=== PATIENT | male | born 1955 | race Caucasian/White ===

== ENCOUNTER 2018-09-14 15:11 | Inpatient (IN) | payer BC ==
[~2018-09-14] VITALS: Ht 182.9 cm; Wt 94.3 kg
[2018-09-14] MEDS ORDERED: IV NORMAL SALINE 1000ML BAG 1,000 ML IV SCH (15:27)
[2018-09-14] MEDS ORDERED: ASPIRIN CHEWABLE 81 MG TABLET. PO ONE (15:30)
--- NOTE | 2018-09-14 15:33 | PHYS DOC ---
Past Medical History Smoking: Quit Greater Than 1 Year Adult General Chief Complaint Chief Complaint: CHEST PAIN HPI HPI Patient is a 63 year old male who presents with a near syncopal episode that happened around 2:00 PM today. The patient states he was pushing carts at [employer] outside and began feeling lightheaded, and started having pain that shot up his left arm and chest. 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 The patient is a poor historian. Denies any pain at this time. Symptoms subsided after the event once he went inside and rested. Has not know his medical history, or medicines that he takes. I did figure out that he is a diabetic, has high cholesterol, and hypertension. Ate lunch and has been drinking fluids as normally does at work. Tried a glucose tablet prior to arrival which did not help. Review of Systems Review of Systems Constitutional: Denies fever or chills [] Eyes: Denies change in visual acuity, redness, or eye pain [] HENT: Denies nasal congestion or sore throat [] Respiratory: Denies cough or shortness of breath [] Cardiovascular: Reports Chest pain and left arm pain at the time of the event. GI: Denies abdominal pain, nausea, vomiting, bloody stools or diarrhea [] : Denies dysuria or hematuria [] Musculoskeletal: Denies back pain or joint pain [] Integument: Denies rash or skin lesions [] Neurologic: Reports dizziness at the time of the event. Denies headache, focal weakness or sensory changes [] Endocrine: Denies polyuria or polydipsia [] Complete systems were reviewed and found to be within normal limits, except as documented in this note. Family History Family History Has a family history of cardiac issues. His father at age 62 from a heart attack. Current Medications Current Medications Current Medications Medications (Trade) Dose Ordered Sig/Amee Start Time Stop Time Status Last Admin Dose Admin Aspirin (Children'S Aspirin) 324 mg 1X ONCE 09/14/18 15:30 09/14/18 15:52 DC 09/14/18 15:56 324 MG Morphine Sulfate (Morphine Sulfate) 2 mg PRN Q2HR PRN 09/14/18 17:15 09/15/18 17:14 Nitroglycerin (Nitrostat) 0.4 mg PRN Q5MIN PRN 09/14/18 17:15 09/15/18 17:14 Ondansetron HCl (Zofran) 4 mg PRN Q8HRS PRN 09/14/18 17:15 09/15/18 17:14 Sodium Chloride 1,000 ml @ 1,000 mls/hr Q1H 09/14/18 15:27 09/14/18 16:26 DC 09/14/18 15:48 1,000 MLS/HR Allergies Allergies Allergies Coded Allergies Type Severity Reaction Last Updated Verified No Known Drug Allergies 09/14/18 No Physical Exam Physical Exam Constitutional: Well developed, well nourished, no acute distress, non-toxic appearance. [] HENT: Normocephalic, atraumatic, bilateral external ears normal, oropharynx moist, no oral exudates, nose normal. [] Eyes: PERRLA, EOMI, conjunctiva normal, no discharge. [] Neck: Normal range of motion, no tenderness, supple, no stridor. [] Cardiovascular:Heart rate regular rhythm, no murmur [] Lungs & Thorax: Bilateral breath sounds clear to auscultation [] Abdomen: Bowel sounds normal, soft, no tenderness, no masses, no pulsatile masses. [] Skin: Warm, dry, no erythema, no rash. [] Back: No tenderness, no CVA tenderness. [] Extremities: No tenderness, no cyanosis, no clubbing, ROM intact, no edema. [] Neurologic: Alert and oriented X 3, normal motor function, normal sensory function, no focal deficits noted. [] Psychologic: Affect normal, judgement normal, mood normal. [] Current Patient Data Vital Signs Vital Signs Date Time Temp Pulse Resp B/P (MAP) Pulse Ox O2 Delivery O2 Flow Rate FiO2 09/14/18 15:57 83 20 160/79 (106) 97 Room Air 09/14/18 15:19 98.4 98.4 Lab Values Laboratory Tests Test 09/14/18 15:34 White Blood Count 6.4 x10^3/uL (4.0-11.0) Red Blood Count 4.42 x10^6/uL (4.30-5.70) Hemoglobin 13.1 g/dL (13.0-17.5) Hematocrit 39.5 % (39.0-53.0) Mean Corpuscular Volume 89 fL (79-100) Mean Corpuscular Hemoglobin 30 pg (25-35) Mean Corpuscular Hemoglobin Concent 33 g/dL (31-37) Red Cell Distribution Width 14.4 % (11.5-14.5) Platelet Count 254 x10^3/uL (140-400) Neutrophils (%) (Auto) 56 % (31-73) Lymphocytes (%) (Auto) 27 % (24-48) Monocytes (%) (Auto) 9 % (0-9) Eosinophils (%) (Auto) 7 % (0-3) H Basophils (%) (Auto) 1 % (0-3) Neutrophils # (Auto) 3.6 x10^3uL (1.8-7.7) Lymphocytes # (Auto) 1.7 x10^3/uL (1.0-4.8) Monocytes # (Auto) 0.6 x10^3/uL (0.0-1.1) Eosinophils # (Auto) 0.4 x10^3/uL (0.0-0.7) Basophils # (Auto) 0.0 x10^3/uL (0.0-0.2) Sodium Level 140 mmol/L (136-145) Potassium Level 4.8 mmol/L (3.5-5.1) Chloride Level 102 mmol/L (98-107) Carbon Dioxide Level 26 mmol/L (21-32) Anion Gap 12 (6-14) Blood Urea Nitrogen 23 mg/dL (8-26) Creatinine 1.0 mg/dL (0.7-1.3) Estimated GFR (Cockcroft-Gault) 75.7 BUN/Creatinine Ratio 23 (6-20) H Glucose Level 149 mg/dL (70-99) H Calcium Level 9.8 mg/dL (8.5-10.1) Total Bilirubin 0.4 mg/dL (0.2-1.0) Aspartate Amino Transferase (AST) 15 U/L (15-37) Alanine Aminotransferase (ALT) 25 U/L (16-63) Alkaline Phosphatase 54 U/L (46-116) Troponin I Quantitative < 0.017 ng/mL (0.000-0.055) KH-Nzz-Q-Type Natriuretic Peptide 25 pg/mL (0-124) Total Protein 7.6 g/dL (6.4-8.2) Albumin 4.0 g/dL (3.4-5.0) Albumin/Globulin Ratio 1.1 (1.0-1.7) Laboratory Tests 09/14/18 15:34 Laboratory Tests 09/14/18 15:34 EKG EKG EKG interpreted by Dr. Reuben Rosa with rate of 80. Occasional PAC. No STEMI.[] Radiology/Procedures Radiology/Procedures []PATIENT: DEMARCUS PRAKASHCOUNT: [id number]#: [id number] : 1955 LOCATION: ER AGE: 63 SEX: M EXAM STATUS: PRE ER ORD. PHYSICIAN: DAVEY PHILLIPS APRN REASON: Chest pain today PROCEDURE: CHEST PA & LATERAL EXAM: CHEST 2 VIEWS. HISTORY: Chest pain. COMPARISON: None. FINDINGS: Frontal and lateral views of the chest are obtained. There are no confluent infiltrates. There is no pneumothorax or pleural effusion. The heart is not enlarged. IMPRESSION: 1. No confluent infiltrates. Electronically signed by: Edvin Young MD (09/14/2018 3:52 PM) [facility] Course & Med Decision Making Course & Med Decision Making Pertinent Labs and Imaging studies reviewed. (See chart for details) Will get labs, chest x-ray, ekg, and give fluids. Patient is agreeable. Imaging is negative. Labs are unremarkable. Discussed admission with patient (1640). Patient agreed to be admitted for further workup. Will page hospitalist. Discussed with hospitalist (Juan) and will admit to hospital. Dragon Disclaimer Dragon Disclaimer This electronic medical record was generated, in whole or in part, using a voice recognition dictation system. Departure Departure Impression: Primary Impression: Chest pain Disposition: ADMITTED INPATIENT Admitting Physician: HIMS Condition: STABLE The HEART Score for CP Pts HEART Score for Chest Pain: HEART Score for Chest Pain Response (Comments) Value History Moderately Suspicious 1 ECG Nonspecific Repolarizatio 1 Age >45 - < 65 1 Risk Factors >3 Risk Factors or Hx CAD 2 Troponin < Normal Limit 0 Total 5 Risk Factors: Risk Factors: DM, Current or recent (<one month) smoker, HTN, HLP, family history of CAD, obesity. Risk Scores: Score 0 - 3: 2.5% MACE over next 6 weeks - Discharge Home Score 4 - 6: 20.3% MACE over next 6 weeks - Admit for Clinical Observation Score 7 - 10: 72.7% MACE over next 6 weeks - Early Invasive Strategies Problem Qualifiers Primary Impression: Chest pain Chest pain type: unspecified Qualified Codes: R07.9 - Chest pain, unspecified DAVEY PHILLIPS APRN Sep 14, 2018 15:33
[2018-09-14] MEDS ORDERED: SIMV40TA3 PO (15:52)
[2018-09-14] MEDS ORDERED: GLIM4TAB2 PO (15:52)
[2018-09-14] MEDS ORDERED: LOSA25TA PO (15:52)
[2018-09-14] MEDS ORDERED: METF500T16 PO (15:52)
[2018-09-14 15:53] LABS: BASO % 1 % (0-3); EOS # 0.4 x10^3/uL (0.0-0.7); EOS % 7 % (0-3); HEMATOCRIT 39.5 % (39.0-53.0); HEMOGLOBIN 13.1 g/dL (13.0-17.5); LYMPH # 1.7 x10^3/uL (1.0-4.8); LYMPH % 27 % (24-48); MEAN CORPUSCULAR HEMOGLOBIN 30 pg (25-35); MEAN CORPUSCULAR HGB CONC 33 g/dL (31-37); MEAN CORPUSCULAR VOLUME 89 fL (79-100); MONO # 0.6 x10^3/uL (0.0-1.1); MONO % 9 % (0-9); NEUT # 3.6 x10^3uL (1.8-7.7); NEUT % 56 % (31-73); PLATELET COUNT 254 x10^3/uL (140-400); RED BLOOD COUNT 4.42 x10^6/uL (4.30-5.70); RED CELL DISTRIBUTION WIDTH 14.4 % (11.5-14.5); WHITE BLOOD COUNT 6.4 x10^3/uL (4.0-11.0)
--- NOTE | 2018-09-14 15:55 | RAD ---
EXAM: CHEST 2 VIEWS. HISTORY: Chest pain. COMPARISON: None. FINDINGS: Frontal and lateral views of the chest are obtained. There are no confluent infiltrates. There is no pneumothorax or pleural effusion. The heart is not enlarged. IMPRESSION: 1. No confluent infiltrates. Electronically signed by: Edvin Young MD (09/14/2018 3:52 PM) [facility]
[2018-09-14 16:05] LABS: CALCIUM 9.8 mg/dL (8.5-10.1); GFR 75.7; POTASSIUM 4.8 mmol/L (3.5-5.1)
[2018-09-14 16:10] LABS: ALBUMIN/GLOBULIN RATIO 1.1 (1.0-1.7); TOTAL BILIRUBIN 0.4 mg/dL (0.2-1.0); TOTAL PROTEIN 7.6 g/dL (6.4-8.2)
--- NOTE | 2018-09-14 16:12 | EKG ---
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
[2018-09-14] MEDS ORDERED: ONDANSETRON PF 4 MG/2 ML VIAL. IV PRN ×2 (17:15→17:45)
[2018-09-14] MEDS ORDERED: MORPHINE SULFATE 2 MG/ML VIAL. IV PRN (17:15)
[2018-09-14] MEDS ORDERED: NITROGLYCERIN SUBLINGUAL 0.4 MG BOTTLE OF 25. SL PRN (17:15)
[2018-09-14] MEDS ORDERED: DEXTROSE 50% 25 GM / 50ML DISP.SYRIN. IV PRN (17:45)
[2018-09-14] MEDS ORDERED: ACETAMINOPHEN 500 MG TABLET PO PRN (17:45)
[2018-09-14] MEDS ORDERED: diphenhydrAMINE HCL 25 MG CAPSULE PO PRN (17:45)
[2018-09-14] MEDS ORDERED: ACETAMINOPHEN/CODEINE 300/30MG TABLET. PO PRN (17:45)
--- NOTE | 2018-09-14 17:49 | PDOC1 ---
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 Blood pressure on the high side and also tachycardi c. Takes metformin, simvastatin, losartan and other meds. Quit smoking 18 years ago when he smoked for 25 years. Not chewing any more tobacco. ALso quit etoh. So far labs are unremarkable - admitted for to trend troponin with cards consult. He denies any diaphoresis or SOA. There was Some left arm involvement. Currently chest pain-free. Past Medical History Cardiovascular: HTN, Hyperlipidemia Pulmonary: Bronchitis Past Surgical History Past Surgical History: No pertinent history Family History Family History: Heart Disease, Hypertension Social History Smoke: Quit ALCOHOL: none Drugs: None Current Problem List Problem List Problems Medical Problems: (1) Chest pain Status: Acute Current Medications Current Medications Current Medications Aspirin (Children'S Aspirin) 324 mg 1X ONCE PO Last administered on 09/14/18at 15:56; Start 09/14/18 at 15:30; Stop 09/14/18 at 15:52; Status DC Sodium Chloride 1,000 ml @ 1,000 mls/hr Q1H IV Last administered on 09/14/18at 15:48; Start 09/14/18 at 15:27; Stop 09/14/18 at 16:26; Status DC Ondansetron HCl (Zofran) 4 mg PRN Q8HRS PRN IV NAUSEA/VOMITING; Start 09/14/18 at 17:15; Stop 09/15/18 at 17:14 Morphine Sulfate (Morphine Sulfate) 2 mg PRN Q2HR PRN IV PAIN; Start 09/14/18 at 17:15; Stop 09/15/18 at 17:14 Nitroglycerin (Nitrostat) 0.4 mg PRN Q5MIN PRN SL CHEST PAIN; Start 09/14/18 at 17:15; Stop 09/15/18 at 17:14 Active Scripts Active Reported Simvastatin 40 Mg Tablet 40 Mg PO DAILY Glimepiride 4 Mg Tablet 1 Tab PO BID Cozaar (Losartan Potassium) 25 Mg Tablet 25 Mg PO DAILY Metformin Hcl 500 Mg Tablet 1,000 Mg PO BIDWMEALS Allergies Allergies: Coded Allergies: No Known Drug Allergies (Unverified , 09/14/18) ROS Review of System As per history of present illness, the rest of ROS 14 point negative Physical Exam General: Alert, Oriented X3, Cooperative, No acute distress HEENT: Atraumatic, PERRLA, EOMI Lungs: Clear to auscultation, Normal air movement Heart: S1S2, RRR, no thrills, no rubs, no gallops, no murmurs Cardiovascular: S1, S2 Abdomen: Normal bowel sounds, Soft, No tenderness, No hepatosplenomegaly, No ma sses Male Genitals Exam: normal genitalia, normal prostate Rectal Exam: not examined PELVIC: Nml ext genitalia Extremities: No clubbing, No cyanosis, No edema, Normal pulses, No tenderness/swelling Skin: No rashes, No breakdown, No significant lesion Neuro: Normal gait, Normal speech, Strength at 5/5 X4 ext, Normal tone, Sensation intact, Cranial nerves 3-12 NL, Reflexes 2+ Psych/Mental Status: Mental status NL, Mood NL Vitals Vitals Vital Signs Date Time Temp Pulse Resp B/P (MAP) Pulse Ox O2 Delivery O2 Flow Rate FiO2 09/14/18 17:35 80 16 160/88 (112) 97 Room Air 09/14/18 15:19 98.4 98.4 Labs Labs Laboratory Tests Test 09/14/18 15:34 White Blood Count 6.4 x10^3/uL (4.0-11.0) Red Blood Count 4.42 x10^6/uL (4.30-5.70) Hemoglobin 13.1 g/dL (13.0-17.5) Hematocrit 39.5 % (39.0-53.0) Mean Corpuscular Volume 89 fL (79-100) Mean Corpuscular Hemoglobin 30 pg (25-35) Mean Corpuscular Hemoglobin Concent 33 g/dL (31-37) Red Cell Distribution Width 14.4 % (11.5-14.5) Platelet Count 254 x10^3/uL (140-400) Neutrophils (%) (Auto) 56 % (31-73) Lymphocytes (%) (Auto) 27 % (24-48) Monocytes (%) (Auto) 9 % (0-9) Eosinophils (%) (Auto) 7 % (0-3) Basophils (%) (Auto) 1 % (0-3) Neutrophils # (Auto) 3.6 x10^3uL (1.8-7.7) Lymphocytes # (Auto) 1.7 x10^3/uL (1.0-4.8) Monocytes # (Auto) 0.6 x10^3/uL (0.0-1.1) Eosinophils # (Auto) 0.4 x10^3/uL (0.0-0.7) Basophils # (Auto) 0.0 x10^3/uL (0.0-0.2) Sodium Level 140 mmol/L (136-145) Potassium Level 4.8 mmol/L (3.5-5.1) Chloride Level 102 mmol/L (98-107) Carbon Dioxide Level 26 mmol/L (21-32) Anion Gap 12 (6-14) Blood Urea Nitrogen 23 mg/dL (8-26) Creatinine 1.0 mg/dL (0.7-1.3) Estimated GFR (Cockcroft-Gault) 75.7 BUN/Creatinine Ratio 23 (6-20) Glucose Level 149 mg/dL (70-99) Calcium Level 9.8 mg/dL (8.5-10.1) Total Bilirubin 0.4 mg/dL (0.2-1.0) Aspartate Amino Transf (AST/SGOT) 15 U/L (15-37) Alanine Aminotransferase (ALT/SGPT) 25 U/L (16-63) Alkaline Phosphatase 54 U/L (46-116) Troponin I Quantitative < 0.017 ng/mL (0.000-0.055) YY-Nvc-H-Type Natriuretic Peptide 25 pg/mL (0-124) Total Protein 7.6 g/dL (6.4-8.2) Albumin 4.0 g/dL (3.4-5.0) Albumin/Globulin Ratio 1.1 (1.0-1.7) Laboratory Tests Test 09/14/18 15:34 White Blood Count 6.4 x10^3/uL (4.0-11.0) Red Blood Count 4.42 x10^6/uL (4.30-5.70) Hemoglobin 13.1 g/dL (13.0-17.5) Hematocrit 39.5 % (39.0-53.0) Mean Corpuscular Volume 89 fL (79-100) Mean Corpuscular Hemoglobin 30 pg (25-35) Mean Corpuscular Hemoglobin Concent 33 g/dL (31-37) Red Cell Distribution Width 14.4 % (11.5-14.5) Platelet Count 254 x10^3/uL (140-400) Neutrophils (%) (Auto) 56 % (31-73) Lymphocytes (%) (Auto) 27 % (24-48) Monocytes (%) (Auto) 9 % (0-9) Eosinophils (%) (Auto) 7 % (0-3) Basophils (%) (Auto) 1 % (0-3) Neutrophils # (Auto) 3.6 x10^3uL (1.8-7.7) Lymphocytes # (Auto) 1.7 x10^3/uL (1.0-4.8) Monocytes # (Auto) 0.6 x10^3/uL (0.0-1.1) Eosinophils # (Auto) 0.4 x10^3/uL (0.0-0.7) Basophils # (Auto) 0.0 x10^3/uL (0.0-0.2) Sodium Level 140 mmol/L (136-145) Potassium Level 4.8 mmol/L (3.5-5.1) Chloride Level 102 mmol/L (98-107) Carbon Dioxide Level 26 mmol/L (21-32) Anion Gap 12 (6-14) Blood Urea Nitrogen 23 mg/dL (8-26) Creatinine 1.0 mg/dL (0.7-1.3) Estimated GFR (Cockcroft-Gault) 75.7 BUN/Creatinine Ratio 23 (6-20) Glucose Level 149 mg/dL (70-99) Calcium Level 9.8 mg/dL (8.5-10.1) Total Bilirubin 0.4 mg/dL (0.2-1.0) Aspartate Amino Transf (AST/SGOT) 15 U/L (15-37) Alanine Aminotransferase (ALT/SGPT) 25 U/L (16-63) Alkaline Phosphatase 54 U/L (46-116) Troponin I Quantitative < 0.017 ng/mL (0.000-0.055) QB-Wnj-X-Type Natriuretic Peptide 25 pg/mL (0-124) Total Protein 7.6 g/dL (6.4-8.2) Albumin 4.0 g/dL (3.4-5.0) Albumin/Globulin Ratio 1.1 (1.0-1.7) VTE Prophylaxis Ordered VTE Prophylaxis Devices: Yes VTE Pharmacological Prophylaxi: Yes Assessment/Plan Assessment/Plan Chest pain on exertion, rule out ACSt Hypertension, uncontrolled Diabetes type 2 on metformin Dyslipidemia on statin Plan: CVC bed, cardsconsult Trend troponin Okay to resume all home meds Sliding-scale insulin May check hemoglobin A1c Labetalol when necessary for high BP Observation status FULL CODE Seen at BAM PERKINS MD Sep 14, 2018 17:49
[2018-09-14 18:13] LABS: BILIRUBIN,URINE NEGATIVE (NEG); CLARITY,URINE CLEAR; COLOR,URINE YELLOW; NITRITE,URINE NEGATIVE (NEG); PROTEIN,URINE NEGATIVE (NEG-TRACE); UROBILINOGEN,URINE 0.2 mg/dL (0.2 mg/dL)
--- NOTE | 2018-09-14 18:15 | NUR ---
The patient, DEMARCUS PRAKASH, 63 y/o, M admitted by BAM JACQUES MD, was given written information regarding hospital policies, unit procedures and contact persons. Valuables checked and left in room with patient. Pt arrived to unit via wheelchair from ER. Pt alert and oriented. No complaints of chest pain at this time. Call light within reach. Will continue to monitor.
[2018-09-14 18:30] VITALS: BP 164/89
[2018-09-14 18:36] LABS: BACTERIA,URINE 0 /HPF (0-FEW); RBC,URINE 0 /HPF (0-2); WBC,URINE 0 /HPF (0-4)
[2018-09-14] MEDS: SIMVASTATIN 40 MG TABLET. PO SCH (21:26)
[2018-09-14 23:26] VITALS: BP 148/73
[2018-09-15 02:52] VITALS: BP 140/80
[2018-09-15 07:00] VITALS: BP 148/80
[2018-09-15] MEDS: INSULIN LISPRO 300 UNITS/3 ML INSULN.PEN. SQ SCH ×3 (08:00→17:00)
--- NOTE | 2018-09-15 08:11 | PDOC2 ---
CONSULT Date of Consult Date of Consult DATE: 09/15/18 TIME: 08:10 Reason for Consult Reason for Consult: Chest pain Referring Physician Referring Physician: Dr. 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 He denied any similar symptoms in the past. He has strong family history of premature coronary artery disease. He quit smoking 18 years ago. He denied any orthopnea/PND, palpitations or syncope. Past Medical History Cardiovascular: HTN, Hyperlipidemia Pulmonary: Bronchitis Past Surgical History Past Surgical History: No pertinent history Family History Family History: Heart Disease, Hypertension Social History Quit ALCOHOL: none Drugs: None Current Problem List Problem List Problems Medical Problems: (1) Chest pain Status: Acute Current Medications Current Medications Current Medications Aspirin (Children'S Aspirin) 324 mg 1X ONCE PO Last administered on 09/14/18at 15:56; Start 09/14/18 at 15:30; Stop 09/14/18 at 15:52; Status DC Sodium Chloride 1,000 ml @ 1,000 mls/hr Q1H IV Last administered on 09/14/18at 15:48; Start 09/14/18 at 15:27; Stop 09/14/18 at 16:26; Status DC Ondansetron HCl (Zofran) 4 mg PRN Q8HRS PRN IV NAUSEA/VOMITING; Start 09/14/18 at 17:15; Stop 09/14/18 at 17:45; Status DC Morphine Sulfate (Morphine Sulfate) 2 mg PRN Q2HR PRN IV PAIN; Start 09/14/18 at 17:15; Stop 09/15/18 at 17:14 Nitroglycerin (Nitrostat) 0.4 mg PRN Q5MIN PRN SL CHEST PAIN; Start 09/14/18 at 17:15; Stop 09/15/18 at 17:14 Ondansetron HCl (Zofran) 4 mg PRN Q6HRS PRN IV NAUSEA/VOMITING; Start 09/14/18 at 17:45 Diphenhydramine HCl (Benadryl) 25 mg PRN QHS PRN PO INSOMNIA; Start 09/14/18 at 17:45 Acetaminophen (Tylenol) 500 mg PRN Q6HRS PRN PO MILD PAIN / TEMP; Start 09/14/18 at 17:45 Acetaminophen/ Codeine Phosphate (Tylenol #3) 1 tab PRN Q6HRS PRN PO MODERATE PAIN; Start 09/14/18 at 17:45 Losartan Potassium (Cozaar) 25 mg DAILY PO ; Start 09/15/18 at 09:00 Glimepiride (Amaryl) 4 mg BIDWMEALS PO ; Start 09/15/18 at 08:00 Metformin HCl (Glucophage) 1,000 mg BIDWMEALS PO ; Start 09/15/18 at 08:00 Simvastatin (Zocor) 40 mg QHS PO Last administered on 09/14/18at 21:26; Start 09/14/18 at 21:00 Insulin Human Lispro (HumaLOG) 0-9 UNITS TIDWMEALS SQ ; Start 09/15/18 at 08:00 Dextrose (Dextrose 50%-Water Syringe) 12.5 gm PRN Q15MIN PRN IV SEE COMMENTS; Start 09/14/18 at 17:45 Active Scripts Active Reported Simvastatin 40 Mg Tablet 40 Mg PO DAILY Glimepiride 4 Mg Tablet 1 Tab PO BID Cozaar (Losartan Potassium) 25 Mg Tablet 25 Mg PO DAILY Metformin Hcl 500 Mg Tablet 1,000 Mg PO BIDWMEALS Allergies Allergies: Coded Allergies: No Known Drug Allergies (Unverified , 09/14/18) ROS PSYCHOLOGICAL ROS: No: Hallucinations Eyes: No Loss of vision HEENT: No: Epistaxis Respiratory: No: Hemoptysis Cardiovascular: yes Chest Pain Gastrointestinal: No Vomiting, No Diarrhea Genitourinary: No Hematuria Neurological: No Seizures Skin: No Rash Physical Exam General: Alert, Oriented X3 HEENT: Atraumatic, PERRLA Lungs: Clear to auscultation Heart: Regular rate Abdomen: Soft, No tenderness Extremities: No edema Psych/Mental Status: Mood NL Vitals VITALS Vital Signs Date Time Temp Pulse Resp B/P (MAP) Pulse Ox O2 Delivery O2 Flow Rate FiO2 09/15/18 07:00 98.2 77 18 148/80 (102) 94 Room Air 98.2 Labs Labs Laboratory Tests Test 09/14/18 15:34 09/14/18 17:55 09/14/18 18:22 09/14/18 20:15 White Blood Count 6.4 x10^3/uL (4.0-11.0) Red Blood Count 4.42 x10^6/uL (4.30-5.70) Hemoglobin 13.1 g/dL (13.0-17.5) Hematocrit 39.5 % (39.0-53.0) Mean Corpuscular Volume 89 fL (79-100) Mean Corpuscular Hemoglobin 30 pg (25-35) Mean Corpuscular Hemoglobin Concent 33 g/dL (31-37) Red Cell Distribution Width 14.4 % (11.5-14.5) Platelet Count 254 x10^3/uL (140-400) Neutrophils (%) (Auto) 56 % (31-73) Lymphocytes (%) (Auto) 27 % (24-48) Monocytes (%) (Auto) 9 % (0-9) Eosinophils (%) (Auto) 7 % (0-3) Basophils (%) (Auto) 1 % (0-3) Neutrophils # (Auto) 3.6 x10^3uL (1.8-7.7) Lymphocytes # (Auto) 1.7 x10^3/uL (1.0-4.8) Monocytes # (Auto) 0.6 x10^3/uL (0.0-1.1) Eosinophils # (Auto) 0.4 x10^3/uL (0.0-0.7) Basophils # (Auto) 0.0 x10^3/uL (0.0-0.2) Sodium Level 140 mmol/L (136-145) Potassium Level 4.8 mmol/L (3.5-5.1) Chloride Level 102 mmol/L (98-107) Carbon Dioxide Level 26 mmol/L (21-32) Anion Gap 12 (6-14) Blood Urea Nitrogen 23 mg/dL (8-26) Creatinine 1.0 mg/dL (0.7-1.3) Estimated GFR (Cockcroft-Gault) 75.7 BUN/Creatinine Ratio 23 (6-20) Glucose Level 149 mg/dL (70-99) Calcium Level 9.8 mg/dL (8.5-10.1) Total Bilirubin 0.4 mg/dL (0.2-1.0) Aspartate Amino Transf (AST/SGOT) 15 U/L (15-37) Alanine Aminotransferase (ALT/SGPT) 25 U/L (16-63) Alkaline Phosphatase 54 U/L (46-116) Troponin I Quantitative < 0.017 ng/mL (0.000-0.055) < 0.017 ng/mL (0.000-0.055) GE-Jjq-P-Type Natriuretic Peptide 25 pg/mL (0-124) Total Protein 7.6 g/dL (6.4-8.2) Albumin 4.0 g/dL (3.4-5.0) Albumin/Globulin Ratio 1.1 (1.0-1.7) Urine Collection Type Void Urine Color Yellow Urine Clarity Clear Urine pH 5.0 Urine Specific [place] <=1.005 Urine Protein Negative mg/dL (NEG-TRACE) Urine Glucose (UA) Negative mg/dL (NEG) Urine Ketones (Stick) Negative mg/dL (NEG) Urine Blood Negative (NEG) Urine Nitrite Negative (NEG) Urine Bilirubin Negative (NEG) Urine Urobilinogen Dipstick 0.2 mg/dL (0.2 mg/dL) Urine Leukocyte Esterase Negative (NEG) Urine RBC 0 /HPF (0-2) Urine WBC 0 /HPF (0-4) Urine Bacteria 0 /HPF (0-FEW) Glucose (Fingerstick) 99 mg/dL (70-99) Test 09/14/18 21:25 09/15/18 07:17 Glucose (Fingerstick) 160 mg/dL (70-99) 155 mg/dL (70-99) Laboratory Tests Test 09/14/18 15:34 09/14/18 17:55 09/14/18 18:22 09/14/18 20:15 White Blood Count 6.4 x10^3/uL (4.0-11.0) Red Blood Count 4.42 x10^6/uL (4.30-5.70) Hemoglobin 13.1 g/dL (13.0-17.5) Hematocrit 39.5 % (39.0-53.0) Mean Corpuscular Volume 89 fL (79-100) Mean Corpuscular Hemoglobin 30 pg (25-35) Mean Corpuscular Hemoglobin Concent 33 g/dL (31-37) Red Cell Distribution Width 14.4 % (11.5-14.5) Platelet Count 254 x10^3/uL (140-400) Neutrophils (%) (Auto) 56 % (31-73) Lymphocytes (%) (Auto) 27 % (24-48) Monocytes (%) (Auto) 9 % (0-9) Eosinophils (%) (Auto) 7 % (0-3) Basophils (%) (Auto) 1 % (0-3) Neutrophils # (Auto) 3.6 x10^3uL (1.8-7.7) Lymphocytes # (Auto) 1.7 x10^3/uL (1.0-4.8) Monocytes # (Auto) 0.6 x10^3/uL (0.0-1.1) Eosinophils # (Auto) 0.4 x10^3/uL (0.0-0.7) Basophils # (Auto) 0.0 x10^3/uL (0.0-0.2) Sodium Level 140 mmol/L (136-145) Potassium Level 4.8 mmol/L (3.5-5.1) Chloride Level 102 mmol/L (98-107) Carbon Dioxide Level 26 mmol/L (21-32) Anion Gap 12 (6-14) Blood Urea Nitrogen 23 mg/dL (8-26) Creatinine 1.0 mg/dL (0.7-1.3) Estimated GFR (Cockcroft-Gault) 75.7 BUN/Creatinine Ratio 23 (6-20) Glucose Level 149 mg/dL (70-99) Calcium Level 9.8 mg/dL (8.5-10.1) Total Bilirubin 0.4 mg/dL (0.2-1.0) Aspartate Amino Transf (AST/SGOT) 15 U/L (15-37) Alanine Aminotransferase (ALT/SGPT) 25 U/L (16-63) Alkaline Phosphatase 54 U/L (46-116) Troponin I Quantitative < 0.017 ng/mL (0.000-0.055) < 0.017 ng/mL (0.000-0.055) AU-Gwx-F-Type Natriuretic Peptide 25 pg/mL (0-124) Total Protein 7.6 g/dL (6.4-8.2) Albumin 4.0 g/dL (3.4-5.0) Albumin/Globulin Ratio 1.1 (1.0-1.7) Urine Collection Type Void Urine Color Yellow Urine Clarity Clear Urine pH 5.0 Urine Specific [place] <=1.005 Urine Protein Negative mg/dL (NEG-TRACE) Urine Glucose (UA) Negative mg/dL (NEG) Urine Ketones (Stick) Negative mg/dL (NEG) Urine Blood Negative (NEG) Urine Nitrite Negative (NEG) Urine Bilirubin Negative (NEG) Urine Urobilinogen Dipstick 0.2 mg/dL (0.2 mg/dL) Urine Leukocyte Esterase Negative (NEG) Urine RBC 0 /HPF (0-2) Urine WBC 0 /HPF (0-4) Urine Bacteria 0 /HPF (0-FEW) Glucose (Fingerstick) 99 mg/dL (70-99) Test 09/14/18 21:25 09/15/18 07:17 Glucose (Fingerstick) 160 mg/dL (70-99) 155 mg/dL (70-99) Assessment/Plan Assessment/Plan 1. Chest pain with typical features. Myocardial infarction has been ruled out. We will obtain Lexiscan nuclear stress test to rule out ischemic etiology secondary to his multiple cardiovascular risk factors. 2. Hypertension: Continue current medical regimen 3. Hyperlipidemia: Statins 4. Diabetes mellitus type 2: Treat per IM Thank you for your consultation BIENVENIDO URIAS MD Sep 15, 2018 08:11
[2018-09-15] MEDS ORDERED: REGADENOSON 0.4 MG/5 ML DISP.SYRIN. IV ONE ×2 (10:15→10:30)
[2018-09-15 11:00] VITALS: BP 156/83
[2018-09-15] MEDS: GLIMEPIRIDE 2 MG TABLET. PO SCH ×2 (12:49→17:02)
[2018-09-15] MEDS: metFORMIN 500 MG TABLET PO SCH ×2 (12:49→17:02)
[2018-09-15] MEDS: LOSARTAN POTASSIUM 25 MG TABLET. PO SCH (12:49)
--- NOTE | 2018-09-15 13:38 | PDOC ---
PROGRESS NOTES Chief Complaint Chief Complaint Chest pain on exertion, rule out ACSt Hypertension, uncontrolled Diabetes type 2 on metformin Dyslipidemia on statin History of Present Illness History of Present Illness MPI stress today if neg will try to DC home pain is better Sliding-scale insulin May check hemoglobin A1c, Dm2 decent control here FULL CODE Se Vitals Vitals Vital Signs Date Time Temp Pulse Resp B/P (MAP) Pulse Ox O2 Delivery O2 Flow Rate FiO2 09/15/18 12:49 80 156/83 09/15/18 11:00 98.8 18 95 Room Air 98.8 Physical Exam General: Alert, Oriented X3 Heart: Regular rate Abdomen: Soft, No tenderness Extremities: No edema Skin: No rashes, No breakdown, No significant lesion Labs LABS Laboratory Tests Test 09/14/18 15:34 09/14/18 17:55 09/14/18 18:22 09/14/18 20:15 White Blood Count 6.4 x10^3/uL (4.0-11.0) Red Blood Count 4.42 x10^6/uL (4.30-5.70) Hemoglobin 13.1 g/dL (13.0-17.5) Hematocrit 39.5 % (39.0-53.0) Mean Corpuscular Volume 89 fL (79-100) Mean Corpuscular Hemoglobin 30 pg (25-35) Mean Corpuscular Hemoglobin Concent 33 g/dL (31-37) Red Cell Distribution Width 14.4 % (11.5-14.5) Platelet Count 254 x10^3/uL (140-400) Neutrophils (%) (Auto) 56 % (31-73) Lymphocytes (%) (Auto) 27 % (24-48) Monocytes (%) (Auto) 9 % (0-9) Eosinophils (%) (Auto) 7 % (0-3) Basophils (%) (Auto) 1 % (0-3) Neutrophils # (Auto) 3.6 x10^3uL (1.8-7.7) Lymphocytes # (Auto) 1.7 x10^3/uL (1.0-4.8) Monocytes # (Auto) 0.6 x10^3/uL (0.0-1.1) Eosinophils # (Auto) 0.4 x10^3/uL (0.0-0.7) Basophils # (Auto) 0.0 x10^3/uL (0.0-0.2) Sodium Level 140 mmol/L (136-145) Potassium Level 4.8 mmol/L (3.5-5.1) Chloride Level 102 mmol/L (98-107) Carbon Dioxide Level 26 mmol/L (21-32) Anion Gap 12 (6-14) Blood Urea Nitrogen 23 mg/dL (8-26) Creatinine 1.0 mg/dL (0.7-1.3) Estimated GFR (Cockcroft-Gault) 75.7 BUN/Creatinine Ratio 23 (6-20) Glucose Level 149 mg/dL (70-99) Calcium Level 9.8 mg/dL (8.5-10.1) Total Bilirubin 0.4 mg/dL (0.2-1.0) Aspartate Amino Transf (AST/SGOT) 15 U/L (15-37) Alanine Aminotransferase (ALT/SGPT) 25 U/L (16-63) Alkaline Phosphatase 54 U/L (46-116) Troponin I Quantitative < 0.017 ng/mL (0.000-0.055) < 0.017 ng/mL (0.000-0.055) JQ-Nsk-L-Type Natriuretic Peptide 25 pg/mL (0-124) Total Protein 7.6 g/dL (6.4-8.2) Albumin 4.0 g/dL (3.4-5.0) Albumin/Globulin Ratio 1.1 (1.0-1.7) Urine Collection Type Void Urine Color Yellow Urine Clarity Clear Urine pH 5.0 Urine Specific [place] <=1.005 Urine Protein Negative mg/dL (NEG-TRACE) Urine Glucose (UA) Negative mg/dL (NEG) Urine Ketones (Stick) Negative mg/dL (NEG) Urine Blood Negative (NEG) Urine Nitrite Negative (NEG) Urine Bilirubin Negative (NEG) Urine Urobilinogen Dipstick 0.2 mg/dL (0.2 mg/dL) Urine Leukocyte Esterase Negative (NEG) Urine RBC 0 /HPF (0-2) Urine WBC 0 /HPF (0-4) Urine Bacteria 0 /HPF (0-FEW) Glucose (Fingerstick) 99 mg/dL (70-99) Test 09/14/18 21:25 09/15/18 07:17 09/15/18 10:49 Glucose (Fingerstick) 160 mg/dL (70-99) 155 mg/dL (70-99) 204 mg/dL (70-99) Assessment and Plan Assessmemt and Plan Problems Medical Problems: (1) Chest pain Status: Acute Comment Review of Relevant I have reviewed the following items donovan (where applicable) has been applied. Labs Laboratory Tests Test 09/14/18 15:34 09/14/18 17:55 09/14/18 18:22 09/14/18 20:15 White Blood Count 6.4 x10^3/uL (4.0-11.0) Red Blood Count 4.42 x10^6/uL (4.30-5.70) Hemoglobin 13.1 g/dL (13.0-17.5) Hematocrit 39.5 % (39.0-53.0) Mean Corpuscular Volume 89 fL (79-100) Mean Corpuscular Hemoglobin 30 pg (25-35) Mean Corpuscular Hemoglobin Concent 33 g/dL (31-37) Red Cell Distribution Width 14.4 % (11.5-14.5) Platelet Count 254 x10^3/uL (140-400) Neutrophils (%) (Auto) 56 % (31-73) Lymphocytes (%) (Auto) 27 % (24-48) Monocytes (%) (Auto) 9 % (0-9) Eosinophils (%) (Auto) 7 % (0-3) Basophils (%) (Auto) 1 % (0-3) Neutrophils # (Auto) 3.6 x10^3uL (1.8-7.7) Lymphocytes # (Auto) 1.7 x10^3/uL (1.0-4.8) Monocytes # (Auto) 0.6 x10^3/uL (0.0-1.1) Eosinophils # (Auto) 0.4 x10^3/uL (0.0-0.7) Basophils # (Auto) 0.0 x10^3/uL (0.0-0.2) Sodium Level 140 mmol/L (136-145) Potassium Level 4.8 mmol/L (3.5-5.1) Chloride Level 102 mmol/L (98-107) Carbon Dioxide Level 26 mmol/L (21-32) Anion Gap 12 (6-14) Blood Urea Nitrogen 23 mg/dL (8-26) Creatinine 1.0 mg/dL (0.7-1.3) Estimated GFR (Cockcroft-Gault) 75.7 BUN/Creatinine Ratio 23 (6-20) Glucose Level 149 mg/dL (70-99) Calcium Level 9.8 mg/dL (8.5-10.1) Total Bilirubin 0.4 mg/dL (0.2-1.0) Aspartate Amino Transf (AST/SGOT) 15 U/L (15-37) Alanine Aminotransferase (ALT/SGPT) 25 U/L (16-63) Alkaline Phosphatase 54 U/L (46-116) Troponin I Quantitative < 0.017 ng/mL (0.000-0.055) < 0.017 ng/mL (0.000-0.055) JR-Jmo-H-Type Natriuretic Peptide 25 pg/mL (0-124) Total Protein 7.6 g/dL (6.4-8.2) Albumin 4.0 g/dL (3.4-5.0) Albumin/Globulin Ratio 1.1 (1.0-1.7) Urine Collection Type Void Urine Color Yellow Urine Clarity Clear Urine pH 5.0 Urine Specific [place] <=1.005 Urine Protein Negative mg/dL (NEG-TRACE) Urine Glucose (UA) Negative mg/dL (NEG) Urine Ketones (Stick) Negative mg/dL (NEG) Urine Blood Negative (NEG) Urine Nitrite Negative (NEG) Urine Bilirubin Negative (NEG) Urine Urobilinogen Dipstick 0.2 mg/dL (0.2 mg/dL) Urine Leukocyte Esterase Negative (NEG) Urine RBC 0 /HPF (0-2) Urine WBC 0 /HPF (0-4) Urine Bacteria 0 /HPF (0-FEW) Glucose (Fingerstick) 99 mg/dL (70-99) Test 09/14/18 21:25 09/15/18 07:17 09/15/18 10:49 Glucose (Fingerstick) 160 mg/dL (70-99) 155 mg/dL (70-99) 204 mg/dL (70-99) Laboratory Tests Test 09/14/18 15:34 09/14/18 17:55 09/14/18 18:22 09/14/18 20:15 White Blood Count 6.4 x10^3/uL (4.0-11.0) Red Blood Count 4.42 x10^6/uL (4.30-5.70) Hemoglobin 13.1 g/dL (13.0-17.5) Hematocrit 39.5 % (39.0-53.0) Mean Corpuscular Volume 89 fL (79-100) Mean Corpuscular Hemoglobin 30 pg (25-35) Mean Corpuscular Hemoglobin Concent 33 g/dL (31-37) Red Cell Distribution Width 14.4 % (11.5-14.5) Platelet Count 254 x10^3/uL (140-400) Neutrophils (%) (Auto) 56 % (31-73) Lymphocytes (%) (Auto) 27 % (24-48) Monocytes (%) (Auto) 9 % (0-9) Eosinophils (%) (Auto) 7 % (0-3) Basophils (%) (Auto) 1 % (0-3) Neutrophils # (Auto) 3.6 x10^3uL (1.8-7.7) Lymphocytes # (Auto) 1.7 x10^3/uL (1.0-4.8) Monocytes # (Auto) 0.6 x10^3/uL (0.0-1.1) Eosinophils # (Auto) 0.4 x10^3/uL (0.0-0.7) Basophils # (Auto) 0.0 x10^3/uL (0.0-0.2) Sodium Level 140 mmol/L (136-145) Potassium Level 4.8 mmol/L (3.5-5.1) Chloride Level 102 mmol/L (98-107) Carbon Dioxide Level 26 mmol/L (21-32) Anion Gap 12 (6-14) Blood Urea Nitrogen 23 mg/dL (8-26) Creatinine 1.0 mg/dL (0.7-1.3) Estimated GFR (Cockcroft-Gault) 75.7 BUN/Creatinine Ratio 23 (6-20) Glucose Level 149 mg/dL (70-99) Calcium Level 9.8 mg/dL (8.5-10.1) Total Bilirubin 0.4 mg/dL (0.2-1.0) Aspartate Amino Transf (AST/SGOT) 15 U/L (15-37) Alanine Aminotransferase (ALT/SGPT) 25 U/L (16-63) Alkaline Phosphatase 54 U/L (46-116) Troponin I Quantitative < 0.017 ng/mL (0.000-0.055) < 0.017 ng/mL (0.000-0.055) AQ-Hmc-H-Type Natriuretic Peptide 25 pg/mL (0-124) Total Protein 7.6 g/dL (6.4-8.2) Albumin 4.0 g/dL (3.4-5.0) Albumin/Globulin Ratio 1.1 (1.0-1.7) Urine Collection Type Void Urine Color Yellow Urine Clarity Clear Urine pH 5.0 Urine Specific [place] <=1.005 Urine Protein Negative mg/dL (NEG-TRACE) Urine Glucose (UA) Negative mg/dL (NEG) Urine Ketones (Stick) Negative mg/dL (NEG) Urine Blood Negative (NEG) Urine Nitrite Negative (NEG) Urine Bilirubin Negative (NEG) Urine Urobilinogen Dipstick 0.2 mg/dL (0.2 mg/dL) Urine Leukocyte Esterase Negative (NEG) Urine RBC 0 /HPF (0-2) Urine WBC 0 /HPF (0-4) Urine Bacteria 0 /HPF (0-FEW) Glucose (Fingerstick) 99 mg/dL (70-99) Test 09/14/18 21:25 09/15/18 07:17 09/15/18 10:49 Glucose (Fingerstick) 160 mg/dL (70-99) 155 mg/dL (70-99) 204 mg/dL (70-99) Medications Current Medications Aspirin (Children'S Aspirin) 324 mg 1X ONCE PO Last administered on 09/14/18at 15:56; Start 09/14/18 at 15:30; Stop 09/14/18 at 15:52; Status DC Sodium Chloride 1,000 ml @ 1,000 mls/hr Q1H IV Last administered on 09/14/18at 1 5:48; Start 09/14/18 at 15:27; Stop 09/14/18 at 16:26; Status DC Ondansetron HCl (Zofran) 4 mg PRN Q8HRS PRN IV NAUSEA/VOMITING; Start 09/14/18 at 17:15; Stop 09/14/18 at 17:45; Status DC Morphine Sulfate (Morphine Sulfate) 2 mg PRN Q2HR PRN IV PAIN; Start 09/14/18 at 17:15; Stop 09/15/18 at 17:14 Nitroglycerin (Nitrostat) 0.4 mg PRN Q5MIN PRN SL CHEST PAIN; Start 09/14/18 at 17:15; Stop 09/15/18 at 17:14 Ondansetron HCl (Zofran) 4 mg PRN Q6HRS PRN IV NAUSEA/VOMITING; Start 09/14/18 at 17:45 Diphenhydramine HCl (Benadryl) 25 mg PRN QHS PRN PO INSOMNIA; Start 09/14/18 at 17:45 Acetaminophen (Tylenol) 500 mg PRN Q6HRS PRN PO MILD PAIN / TEMP; Start 09/14/18 at 17:45 Acetaminophen/ Codeine Phosphate (Tylenol #3) 1 tab PRN Q6HRS PRN PO MODERATE PAIN; Start 09/14/18 at 17:45 Losartan Potassium (Cozaar) 25 mg DAILY PO Last administered on 09/15/18at 12:49; Start 09/15/18 at 09:00 Glimepiride (Amaryl) 4 mg BIDWMEALS PO Last administered on 09/15/18at 12:49; Start 09/15/18 at 08:00 Metformin HCl (Glucophage) 1,000 mg BIDWMEALS PO Last administered on 09/15/18at 12:49; Start 09/15/18 at 08:00 Simvastatin (Zocor) 40 mg QHS PO Last administered on 09/14/18at 21:26; Start 09/14/18 at 21:00 Insulin Human Lispro (HumaLOG) 0-9 UNITS TIDWMEALS SQ Last administered on 09/15/18at 12:52; Start 09/15/18 at 08:00 Dextrose (Dextrose 50%-Water Syringe) 12.5 gm PRN Q15MIN PRN IV SEE COMMENTS; Start 09/14/18 at 17:45 Regadenoson (Lexiscan) 0.4 mg 1X ONCE IV ; Start 09/15/18 at 10:15; Stop 09/15/18 at 10:16; Status DC Active Scripts Active Reported Simvastatin 40 Mg Tablet 40 Mg PO DAILY Glimepiride 4 Mg Tablet 1 Tab PO BID Cozaar (Losartan Potassium) 25 Mg Tablet 25 Mg PO DAILY Metformin Hcl 500 Mg Tablet 1,000 Mg PO BIDWMEALS Vitals/I & O Vital Sign - Last 24 Hours 09/14/18 09/14/18 09/14/18 09/14/18 15:19 15:57 16:49 17:35 Temp 98.4 98.4 Pulse 85 83 76 80 Resp 20 20 20 16 B/P (MAP) 174/91 (118) 160/79 (106) 159/76 (103) 160/88 (112) Pulse Ox 97 97 98 97 O2 Delivery Room Air Room Air Room Air Room Air 09/14/18 09/14/18 09/14/18 09/14/18 18:30 18:31 20:23 23:26 Temp 98.4 98.1 98.4 98.1 Pulse 75 68 Resp 18 18 B/P (MAP) 164/89 (114) 148/73 (98) Pulse Ox 99 96 O2 Delivery Room Air Room Air Room Air Room Air 09/15/18 09/15/18 09/15/18 09/15/18 02:52 07:00 08:00 11:00 Temp 98.1 98.2 98.8 98.1 98.2 98.8 Pulse 70 77 80 Resp 18 18 18 B/P (MAP) 140/80 (100) 148/80 (102) 156/83 (107) Pulse Ox 95 94 95 O2 Delivery Room Air Room Air Room Air Room Air 09/15/18 12:49 Pulse 80 B/P (MAP) 156/83 Intake and Output 09/14/18 09/14/18 09/15/18 15:00 23:00 07:00 Intake Total 1100 ml 200 ml Output Total 250 ml 325 ml Balance 850 ml -125 ml JOSE HARMON MD Sep 15, 2018 13:38
--- NOTE | 2018-09-15 13:41 | PDOC3 ---
Discharge Summary Visit Information Date of Admission: Sep 14, 2018 Date of Discharge: Sep 15, 2018 Final Diagnosis 1. Chest pain with typical features. 2. Hypertension and hyperlipids Statins 3 Diabetes mellitus type 2: Problems Medical Problems: (1) Chest pain Status: Acute Brief Hospital Course Allergies Allergies Coded Allergies Type Severity Reaction Last Updated Verified No Known Drug Allergies 09/14/18 No Vital Signs Vital Signs Date Time Temp Pulse Resp B/P (MAP) Pulse Ox O2 Delivery O2 Flow Rate FiO2 09/15/18 12:49 80 156/83 09/15/18 11:00 98.8 18 95 Room Air 98.8 Lab Results Laboratory Tests Test 09/14/18 15:34 09/14/18 17:55 09/14/18 18:22 09/14/18 20:15 White Blood Count 6.4 x10^3/uL (4.0-11.0) Red Blood Count 4.42 x10^6/uL (4.30-5.70) Hemoglobin 13.1 g/dL (13.0-17.5) Hematocrit 39.5 % (39.0-53.0) Mean Corpuscular Volume 89 fL (79-100) Mean Corpuscular Hemoglobin 30 pg (25-35) Mean Corpuscular Hemoglobin Concent 33 g/dL (31-37) Red Cell Distribution Width 14.4 % (11.5-14.5) Platelet Count 254 x10^3/uL (140-400) Neutrophils (%) (Auto) 56 % (31-73) Lymphocytes (%) (Auto) 27 % (24-48) Monocytes (%) (Auto) 9 % (0-9) Eosinophils (%) (Auto) 7 % (0-3) Basophils (%) (Auto) 1 % (0-3) Neutrophils # (Auto) 3.6 x10^3uL (1.8-7.7) Lymphocytes # (Auto) 1.7 x10^3/uL (1.0-4.8) Monocytes # (Auto) 0.6 x10^3/uL (0.0-1.1) Eosinophils # (Auto) 0.4 x10^3/uL (0.0-0.7) Basophils # (Auto) 0.0 x10^3/uL (0.0-0.2) Sodium Level 140 mmol/L (136-145) Potassium Level 4.8 mmol/L (3.5-5.1) Chloride Level 102 mmol/L (98-107) Carbon Dioxide Level 26 mmol/L (21-32) Anion Gap 12 (6-14) Blood Urea Nitrogen 23 mg/dL (8-26) Creatinine 1.0 mg/dL (0.7-1.3) Estimated GFR (Cockcroft-Gault) 75.7 BUN/Creatinine Ratio 23 (6-20) Glucose Level 149 mg/dL (70-99) Calcium Level 9.8 mg/dL (8.5-10.1) Total Bilirubin 0.4 mg/dL (0.2-1.0) Aspartate Amino Transf (AST/SGOT) 15 U/L (15-37) Alanine Aminotransferase (ALT/SGPT) 25 U/L (16-63) Alkaline Phosphatase 54 U/L (46-116) Troponin I Quantitative < 0.017 ng/mL (0.000-0.055) < 0.017 ng/mL (0.000-0.055) YD-Sfp-F-Type Natriuretic Peptide 25 pg/mL (0-124) Total Protein 7.6 g/dL (6.4-8.2) Albumin 4.0 g/dL (3.4-5.0) Albumin/Globulin Ratio 1.1 (1.0-1.7) Urine Collection Type Void Urine Color Yellow Urine Clarity Clear Urine pH 5.0 Urine Specific [place] <=1.005 Urine Protein Negative mg/dL (NEG-TRACE) Urine Glucose (UA) Negative mg/dL (NEG) Urine Ketones (Stick) Negative mg/dL (NEG) Urine Blood Negative (NEG) Urine Nitrite Negative (NEG) Urine Bilirubin Negative (NEG) Urine Urobilinogen Dipstick 0.2 mg/dL (0.2 mg/dL) Urine Leukocyte Esterase Negative (NEG) Urine RBC 0 /HPF (0-2) Urine WBC 0 /HPF (0-4) Urine Bacteria 0 /HPF (0-FEW) Glucose (Fingerstick) 99 mg/dL (70-99) Test 09/14/18 21:25 09/15/18 07:17 09/15/18 10:49 Glucose (Fingerstick) 160 mg/dL (70-99) 155 mg/dL (70-99) 204 mg/dL (70-99) Laboratory Tests Test 09/14/18 15:34 09/14/18 17:55 09/14/18 18:22 09/14/18 20:15 White Blood Count 6.4 x10^3/uL (4.0-11.0) Red Blood Count 4.42 x10^6/uL (4.30-5.70) Hemoglobin 13.1 g/dL (13.0-17.5) Hematocrit 39.5 % (39.0-53.0) Mean Corpuscular Volume 89 fL (79-100) Mean Corpuscular Hemoglobin 30 pg (25-35) Mean Corpuscular Hemoglobin Concent 33 g/dL (31-37) Red Cell Distribution Width 14.4 % (11.5-14.5) Platelet Count 254 x10^3/uL (140-400) Neutrophils (%) (Auto) 56 % (31-73) Lymphocytes (%) (Auto) 27 % (24-48) Monocytes (%) (Auto) 9 % (0-9) Eosinophils (%) (Auto) 7 % (0-3) Basophils (%) (Auto) 1 % (0-3) Neutrophils # (Auto) 3.6 x10^3uL (1.8-7.7) Lymphocytes # (Auto) 1.7 x10^3/uL (1.0-4.8) Monocytes # (Auto) 0.6 x10^3/uL (0.0-1.1) Eosinophils # (Auto) 0.4 x10^3/uL (0.0-0.7) Basophils # (Auto) 0.0 x10^3/uL (0.0-0.2) Sodium Level 140 mmol/L (136-145) Potassium Level 4.8 mmol/L (3.5-5.1) Chloride Level 102 mmol/L (98-107) Carbon Dioxide Level 26 mmol/L (21-32) Anion Gap 12 (6-14) Blood Urea Nitrogen 23 mg/dL (8-26) Creatinine 1.0 mg/dL (0.7-1.3) Estimated GFR (Cockcroft-Gault) 75.7 BUN/Creatinine Ratio 23 (6-20) Glucose Level 149 mg/dL (70-99) Calcium Level 9.8 mg/dL (8.5-10.1) Total Bilirubin 0.4 mg/dL (0.2-1.0) Aspartate Amino Transf (AST/SGOT) 15 U/L (15-37) Alanine Aminotransferase (ALT/SGPT) 25 U/L (16-63) Alkaline Phosphatase 54 U/L (46-116) Troponin I Quantitative < 0.017 ng/mL (0.000-0.055) < 0.017 ng/mL (0.000-0.055) DK-Pwl-B-Type Natriuretic Peptide 25 pg/mL (0-124) Total Protein 7.6 g/dL (6.4-8.2) Albumin 4.0 g/dL (3.4-5.0) Albumin/Globulin Ratio 1.1 (1.0-1.7) Urine Collection Type Void Urine Color Yellow Urine Clarity Clear Urine pH 5.0 Urine Specific [place] <=1.005 Urine Protein Negative mg/dL (NEG-TRACE) Urine Glucose (UA) Negative mg/dL (NEG) Urine Ketones (Stick) Negative mg/dL (NEG) Urine Blood Negative (NEG) Urine Nitrite Negative (NEG) Urine Bilirubin Negative (NEG) Urine Urobilinogen Dipstick 0.2 mg/dL (0.2 mg/dL) Urine Leukocyte Esterase Negative (NEG) Urine RBC 0 /HPF (0-2) Urine WBC 0 /HPF (0-4) Urine Bacteria 0 /HPF (0-FEW) Glucose (Fingerstick) 99 mg/dL (70-99) Test 09/14/18 21:25 09/15/18 07:17 09/15/18 10:49 Glucose (Fingerstick) 160 mg/dL (70-99) 155 mg/dL (70-99) 204 mg/dL (70-99) Brief Hospital Course Mr. Mcpherson is a 63 old male, admit with chest pain, anginal in 63 male with htn, lipids and Dm2, mult risk factors, MPI stress done,results pending, pt may go if low risk f/u primary care Discharge Information Condition at Discharge: Improved Follow Up: Weeks Disposition/Orders: D/C to Home Scheduled Glimepiride (Glimepiride) 4 Mg Tablet, 1 TAB PO BID, #180 Ref 1 (Reported) Entered as Reported by: YULIANA COLON on 09/14/181551 Last Action: Converted on 09/14/181743 by BAM JACQUES Losartan Potassium (Cozaar ) 25 Mg Tablet, 25 MG PO DAILY for HYPERTENSION, (Reported) Entered as Reported by: YULIANA COLON on 09/14/181551 Last Action: Continued on 09/14/181743 by BAM JACQUES Metformin Hcl (Metformin Hcl) 500 Mg Tablet, 1,000 MG PO BIDWMEALS for ANTI-DIABETIC, Ref 0 (Reported) Entered as Reported by: YULIANA COLON on 09/14/181551 Last Action: Converted on 09/14/181743 by BAM JACQUES Simvastatin (Simvastatin) 40 Mg Tablet, 40 MG PO DAILY for FOR CHOLESTEROL, #30 Ref 0 (Reported) Entered as Reported by: YULIANA COLON on 09/14/181551 Last Action: Converted on 09/14/181743 by BAM JACQUES Patient Instructions Patient Instructions obs disc. > 30 min JOSE HARMON MD Sep 15, 2018 13:41
[2018-09-15 15:00] VITALS: BP 156/78
[2018-09-15 19:21] VITALS: BP 142/78
[2018-09-15] MEDS: SIMVASTATIN 40 MG TABLET. PO SCH (21:27)
[2018-09-15 23:18] VITALS: BP 149/73
[2018-09-16 01:07] LABS: HEMOGLOBIN A1C 8.3 % (4.8-5.6)
[2018-09-16 02:57] VITALS: BP 134/68
[2018-09-16 07:23] VITALS: BP 139/73
[2018-09-16] MEDS: INSULIN LISPRO 300 UNITS/3 ML INSULN.PEN. SQ SCH ×2 (08:00→12:24)
[2018-09-16] MEDS: metFORMIN 500 MG TABLET PO SCH (08:09)
[2018-09-16] MEDS: GLIMEPIRIDE 2 MG TABLET. PO SCH (08:09)
[2018-09-16] MEDS: LOSARTAN POTASSIUM 25 MG TABLET. PO SCH (09:00)
[2018-09-16 11:07] VITALS: BP 102/72
--- NOTE | 2018-09-16 12:14 | RAD ---
MR#: [id number] Date of Study: 09/15/2018 Ordering Physician: BIENVENIDO URIAS, Referring Physician: ISMAEL HUA Tech: ALEX Baeza APPROVED REPORT Test Type: Pharmacological Stress Nurse/Tech: Fior Bob RN Test Indications: Chest pain Cardiac History: Family history, Hypertension,former smoker, Diabetes Medications: See Electronic Medical Record Medical History: See Electronic Medical Record Resting ECG: SR Resting Heart Rate: 78 bpm Resting Blood Pressure: 148/75mmHg Pretest Chest Pain: No chest pain Nurse/Tech Notes S1,S2 and lungs clear to auscultation. Consent: The procedure was explained to the patient in lay terms. Informed consent was witnessed. Braden eout was entered into [employer]. History and Stress Test performed by ALEX Baeza Pharm. Details Pharmacologic stress testing was performed using 0.4mg per 5ml of regadenoson given intravenously ove r 7-10 seconds. Stress Symptoms Nausea POST EXERCISE Reason for Termination: Infusion complete Target HR: No Max HR: 109 bpm Max Blood Pressure: 163/73mmHg Blood Pressure response to exercise: Normal blood pressure response during stress. Heart Rate response to exercise: WNL Chest Pain: No. Arrhythmia: No. ST Change: Yes. slight changes in ST in leads v2-v6 during first minute of stress which returned to b aseline INTERPRETATION Stress EKG Conclusion: Baseline EKG showed sinus rhythm. Non-diagnostic changes at peak stress. No arrhythmias. Imaging Protocol IMAGE PROTOCOL: Stress Tc-99m/rest Tc-99m 2 days Rest: Stress: Viability: Radiopharm.Tc99m DgqujmcpeCi38f Sestamibi Dose32.4mCi 32.5mCi Duration 12min. 12min. Img Date 09/16/2018 09/15/2018 Inj-Img [id number]. 60min. Rest Admin Site:IV - Left AntecubitalAdministrator:ALEX Baeza Stress Admin Site: IV - Left AntecubitalAdministrator: ALEX Baeza STRESS DATA End Diast. Vol.133.5mlAv. Heart Rate81.0bpm End Syst. Vol.43.5mlCO Index BSA0.0L/min Myocardial Xfdk807.5gEject. Ctebkajw79.0% Stress Rates Pk. Fill Rate3.50EDV/secLVtime Pk. Fill 157.89msec Pk. Empty Rate3.55ESV/secLVtime Pk. Zenya514.82msec 1/3 Pk. Fill1.63EDV/sec Stress Scores Regional WT1.00Summed WT3.50 Regional WM0.00Summed WM1.00 Study quality was good. Left Ventricular size was Normal at Rest and Stress. Lung uptake was . Left Ventricular ejection fraction is 67%. The rest and stress images show normal perfusion, normal contraction and thickening. LV Perf. Quant 17 Seg. SSS3.00 17 Seg. SRS3.00 17 Seg. SDS1.00 Stress Defect Extent (% LAD)0.95Rest Defect Extent (% LAD)0.60Rev. Defect Extent (% LAD)0.00 Stress Defect Extent (% LCX) 8.80Rest Defect Extent (% LCX)8.80Rev. Defect Extent (% LCX)0.00 Stress Defect Extent (% RCA)10.00Rest Defect Extent (% RCA)24.40Rev. Defect Extent (% RCA)0.00 Stress Defect Extent (% [place])8.35Rest Defect Extent (% [place])13.00Rev. Defect Extent (% [place])0.00 Conclusion 1. Regadenoson cardioisotope stress test did not show any evidence of ischemia or infarct. 2. Normal left ventricular systolic function with ejection fraction calculated at 67%. 3. Low risk for cardiac events. Signed by : Bienvenido Urias, Electronically Approved : 09/16/2018 12:14:28
--- NOTE | 2018-09-16 12:26 | PDOC ---
PROGRESS NOTES Subjective Subjective Patient denied any further episodes of chest pain Objective Objective Vital Signs Date Time Temp Pulse Resp B/P (MAP) Pulse Ox O2 Delivery O2 Flow Rate FiO2 09/16/18 11:07 97.9 78 16 102/72 (82) 98 Room Air 97.9 Intake and Output 09/16/18 07:00 Intake Total 1040 ml Balance 1040 ml Intake Oral 1040 ml # Voids 4 Physical Exam Abdomen: Soft, No tenderness Heart: Regular rate Extremities: No edema General: Alert, Oriented X3 HEENT: Atraumatic, PERRLA Lungs: Clear to auscultation Neuro: Normal gait, Normal speech, Strength at 5/5 X4 ext, Normal tone, Sensation intact, Cranial nerves 3-12 NL, Reflexes 2+ Psych/Mental Status: Mood NL Skin: No rashes, No breakdown, No significant lesion Assessment Assessment 1. Chest pain with typical features. Myocardial infarction has been ruled out. Lexiscan nuclear stress test did not show any significant ischemia. Okay for discharge from cardiac standpoint. 2. Hypertension: Continue current medical regimen 3. Hyperlipidemia: Statins 4. Diabetes mellitus type 2: Treat per IM Follow-up in 1 month. Plan Plan of Care Problems Medical Problems: (1) Chest pain Status: Acute Comment Review of Relevant I have reviewed the following items donovan (where applicable) has been applied. Labs Laboratory Tests Test 09/15/18 16:59 09/15/18 21:25 09/15/18 22:06 09/16/18 07:27 Glucose (Fingerstick) 87 mg/dL (70-99) 68 mg/dL (70-99) 91 mg/dL (70-99) 160 mg/dL (70-99) Test 09/16/18 11:03 Glucose (Fingerstick) 245 mg/dL (70-99) Vitals/I & O Vital Sign - Last 24 Hours 09/15/18 09/15/18 09/15/18 09/15/18 12:49 15:00 19:21 20:26 Temp 97.5 98.6 97.5 98.6 Pulse 80 87 96 Resp 18 20 B/P (MAP) 156/83 156/78 (104) 142/78 (99) Pulse Ox 95 98 O2 Delivery Room Air Room Air Room Air 09/15/18 09/16/18 09/16/18 09/16/18 23:18 02:57 07:23 07:40 Temp 97.4 98.1 97.8 97.4 98.1 97.8 Pulse 70 92 73 Resp 20 18 16 B/P (MAP) 149/73 (98) 134/68 (90) 139/73 (95) Pulse Ox 95 95 95 O2 Delivery Room Air Room Air Room Air Room Air 09/16/18 11:07 Temp 97.9 97.9 Pulse 78 Resp 16 B/P (MAP) 102/72 (82) Pulse Ox 98 O2 Delivery Room Air Intake and Output 09/15/18 09/15/18 09/16/18 15:00 23:00 07:00 Intake Total 800 ml 120 ml 120 ml Balance 800 ml 120 ml 120 ml BIENVENIDO URIAS MD Sep 16, 2018 12:26
--- NOTE | 2018-09-16 14:46 | NUR ---
PATIENTS IV OUT AND TELE MONITOR OFF. DISCHARGE INSTRUCTIONS DISCUSSED WITH THE PATIENT AND PATIENT INFORMED TO FOLLOW UP WITH CARDIOLOGY IN 4 WEEKS. PATIENT IS STABLE AT TIME OF DISCHARGE. PATIENT ESCORTED TO [facility] BY RN.
== END 2018-09-16 14:45 | disposition home or self-care (01) | DRG 313 ==
LOC: ER 15:11 → 2 NORTH 16:47
PROVIDERS: ADMIT Internal Medicine; ATTEND Internal Medicine
DX: R07.9 Chest pain, unspecified (principal); E11.9 Type 2 diabetes mellitus without complications; E78.00 Pure hypercholesterolemia, unspecified; E78.5 Hyperlipidemia, unspecified; I10 Essential (primary) hypertension; Z79.84 Long term (current) use of oral hypoglycemic drugs; Z82.49 Family history of ischemic heart disease and other diseases of the circulatory system; Z87.891 Personal history of nicotine dependence; Z79.899 Other long term (current) drug therapy
CPT/HCPCS: 36415; 71046; 78452; 80053; 81001; 82962; 83036; 83880; 84484; 85025; 93005; 93017; 96360; 96376; A9500; J1815; J2785; J7030; 99285-25

== ENCOUNTER 2021-05-24 22:03 | Day surgery (SDC) | payer BC, MEDICARE, OTHER ==
[~2021-05-24] VITALS: Ht 180.3 cm; Wt 110.0 kg
[~2021-05-24 22:03] MED LIST: GLIM4TAB8 PO; LOSA25TA PO; METF500T16 PO; SIMV40TA18 PO
--- NOTE | 2021-05-25 07:11 | PHYS DOC ---
Past Medical History Past Medical History: Arthritis, Diabetes-Type II, Hypertension, Other Additional Past Medical Histor: [facility] Past Surgical History: No Surgical History Smoking Status: Former Smoker Alcohol Use: Sober Drug Use: None General Adult EDM: Chief Complaint: FOREIGN BODY HPI: HPI: Patient is a 66 year old male who presents with inability to swallow since approximately 8309:00 last night. Patient was eating roast beef and potatoes when all of a sudden he became ill and had to vomit. Since then he has not been able to swallow any water or his own spit. "It just comes right back up." He has some mild discomfort in his chest, but no difficulty breathing, severe chest pain, or fever/chills. Review of Systems: Review of Systems: Constitutional: Denies fever or chills. [] Eyes: Denies change in visual acuity. [] HENT: Denies nasal congestion or sore throat. [] Respiratory: Denies cough or shortness of breath. [] Cardiovascular: Denies chest pain or edema. [] GI: Reports nausea and vomiting. Denies abdominal pain, bloody stools or diarrhea. [] : Denies dysuria. [] Musculoskeletal: Denies back pain or joint pain. [] Integument: Denies rash. [] Neurologic: Denies headache, focal weakness or sensory changes. [] Psychiatric: Denies depression or anxiety. [] Heart Score: C/O Chest Pain: N/A Allergies: Allergies: Allergies Coded Allergies Type Severity Reaction Last Updated Verified No Known Drug Allergies 09/14/18 No Physical Exam: PE: Constitutional: Well developed, well nourished, no acute distress, non-toxic appearance. [] Neck: Normal range of motion, no tenderness, supple, no stridor. [] Cardiovascular:Heart rate regular rhythm, no murmur [] Lungs & Thorax: Bilateral breath sounds clear to auscultation [] Abdomen: Bowel sounds normal, soft, no tenderness, no masses, no pulsatile masses. [] Skin: Warm, dry, no erythema, no rash. [] Back: No tenderness, no CVA tenderness. [] Extremities: No tenderness, no cyanosis, no clubbing, ROM intact, no edema. [] Neurologic: Alert and oriented X 3, normal motor function, normal sensory function, no focal deficits noted. [] Psychologic: Affect normal, judgement normal, mood normal. [] Current Patient Data: Vital Signs: Vital Signs Date Time Temp Pulse Resp B/P (MAP) Pulse Ox O2 Delivery O2 Flow Rate FiO2 05/25/21 06:51 97.4 82 18 181/89 (119) 93 Room Air 97.4 EKG: EKG: [] Radiology/Procedures: Radiology/Procedures: [] Course & Med Decision Making: Course & Med Decision Making Pertinent Labs and Imaging studies reviewed. (See chart for details) Patient 66-year-old male with presentation concerning for esophageal food impaction. Patient attempted to drink water in the emergency department, and immediately regurgitated. Will discuss with GI. Holding on glucagon for now. [address] Gandara of GI. Plan for endoscopy later today. [id number] Celia Disclaimer: Celia Disclaimer: This electronic medical record was generated, in whole or in part, using a voice recognition dictation system. Departure Departure Impression: Primary Impression: Esophageal obstruction due to food impaction Disposition: 30 STILL A PATIENT Condition: STABLE Referrals: GERARDO FRANCES (PCP) HEIDI HULL MD May 25, 2021 07:11
[2021-05-25] MEDS ORDERED: ONDANSETRON PF 4 MG/2 ML VIAL. IVP PRN (07:45)
[2021-05-25] MEDS ORDERED: IV RINGERS,LACTATED 1000ML 1,000 ML IV ONE (07:45)
--- NOTE | 2021-05-25 09:56 | PDOC2 ---
GI CONSULT Date of Service: DATE: 05/25/21 TIME: 09:56 Reason For Consult: esophageal food impaction HPI: HPI: 66 y/o male who we were called to see in ER. Potato stuck in upper chest/neck area since last night. Holding emesis basin w/ saliva, didn't tolerate sip of water in ER. He thinks it's still there, feels uncomfortable. No h/o dysphagia before now. No reflux/heartburn, n/v, abd pain, diarrhea, constipation, bleeding, change in appetite, or weight loss. No previous EGD. More than one past colonoscopy (dating back to 2004 in our records), h/o polyps - last in 2019 (Dr. Rousseau) noted tattoo from previous polypectomy site. No GB, liver, pancreas, or PUD history. Used to take Advil but was advised to quit. Now takes Tylenol PRN. Hypertensive in ER - BP 228/102 when I saw. He doesn't check his BP at home but indicates he checks glucose sometimes. ER info indicates no COVID vaccine. PMH: PMH: HTN, HLD, DM, bronchitis, OA FH: Family History: Other ("massive heart attacks") Social History: Smoke: Quit ALCOHOL: other (sober x 25 years) Drugs: None ROS: GEN: Denies fevers, chills, sweats HEENT: Denies blurred vision, sore throat CV: Denies chest pain RESP: Denies shortness of air, cough GI: Per HPI : Denies hematuria, dysuria ENDO: Denies weight changes NEURO: Denies confusion, dizziness MSK: Denies weakness, joint pain/swelling SKIN: Denies jaundice, pruritus Vitals: Vitals: Vital Signs Date Time Temp Pulse Resp B/P (MAP) Pulse Ox O2 Delivery O2 Flow Rate FiO2 05/25/21 06:51 97.4 82 18 181/89 (119) 93 Room Air 97.4 Labs: Labs: Laboratory Tests Test 05/25/21 07:50 Glucose (Fingerstick) 142 mg/dL (70-99) Allergies: Coded Allergies: No Known Drug Allergies (Unverified , 09/14/18) Medications: Current Medications Medications (Trade) Dose Ordered Sig/Aeme Route PRN Reason Start Time Stop Time Status Last Admin Dose Admin Ringer's Solution 1,000 ml @ 75 mls/hr 1X ONCE IV 05/25/21 07:45 05/25/21 21:04 05/25/21 07:57 Imaging: Imaging: - PE: GEN: NAD - emesis basin w/ saliva HEENT: Atraumatic, PERRL LUNGS: clear anteriorly HEART: RRR ABD: large/round, BS+, soft, non-tender EXTREMITY: No edema SKIN: No rashes, no jaundice NEURO/PSYCH: A & O 3 A/P: A/P: Food impaction CRC screen, h/o polyps - last colonoscopy 2018 HTN, DM -- Still in ER - recommend admission to hospitalist, address HTN - could consider DC soon after EGD. Trying to arrange EGD/disimpaction this afternoon w/ Dr. Choi but awaiting anesthesia approval/availability. IV PPI. Check COVID. GARRICK MURRAY May 25, 2021 09:56
[2021-05-25] MEDS ORDERED: PANTOPRAZOLE IV PUSH 40 MG VIAL. IVP SCH (10:30)
[2021-05-25 12:08] VITALS: BP 207/94
[2021-05-25] MEDS ORDERED: PIOG45TA62 PO (12:08)
[2021-05-25] MEDS ORDERED: LIDOCAINE 2% PF 5 ML VIAL. ONE (14:25)
[2021-05-25] MEDS ORDERED: PROPOFOL 10 MG/ML (20ML) VIAL. IV ONE (14:26)
--- NOTE | 2021-05-25 14:47 | PDOC4 ---
PROCEDURE Procedure EGD/foreign body Indication: Impacted food bolus. Meds: per anesthesia Findings: E--Impacted meat distally; able to gently push into stomach. Post-impaction irritation in distal esophagus w/o discrete stricture. G--Normal D--Normal to second portion. Daphney. well. IMP: Impacted food bolus, resolved. REC: OK to go home. Resume meds, diet as before. F/u in office prn. Chew food well. DAVEY HIDALGO MD May 25, 2021 14:47
[2021-05-25 15:16] VITALS: BP 164/92
== END 2021-05-25 15:01 | disposition home or self-care (01) ==
LOC: ER 22:03 → SURG 05-25 14:30
PROVIDERS: ATTEND Internal Medicine Gastroenterology
DX: T18.128A Food in esophagus causing other injury, initial encounter (principal); T18.108A Unspecified foreign body in esophagus causing other injury, initial encounter; K31.89 Other diseases of stomach and duodenum; J44.9 Chronic obstructive pulmonary disease, unspecified; E78.00 Pure hypercholesterolemia, unspecified; E11.9 Type 2 diabetes mellitus without complications; I10 Essential (primary) hypertension; M19.90 Unspecified osteoarthritis, unspecified site; F41.9 Anxiety disorder, unspecified; Z79.899 Other long term (current) drug therapy; Z98.890 Other specified postprocedural states; Z20.822 Contact with and (suspected) exposure to COVID-19; Z87.891 Personal history of nicotine dependence; X58.XXXA Exposure to other specified factors, initial encounter; Y93.89 Activity, other specified; Y92.89 Other specified places as the place of occurrence of the external cause; Y99.8 Other external cause status
CPT/HCPCS: 43247; 82962; 87426; C9113; J2704; J7120; 99285-25